=== PATIENT | male | born 1990 | race African-American/Black ===

== ENCOUNTER 2016-06-07 02:56 | Emergency (ER) | payer OTHER ==
[~2016-06-07] VITALS: Ht 180.3 cm; Wt 71.7 kg
[~2016-06-07 02:56] MED LIST: AZITHROMYCIN250 MG PO; NOHOMEMEDS; PERCOCET 5/31 TABLET PO
[2016-06-07] MEDS ORDERED: PERCOCET 5/31 TABLET PO (03:29)
[2016-06-07 03:42] VITALS: BP 128/95
== END 2016-06-07 03:51 | disposition home or self-care (01) ==
LOC: EME → EDBD 02:56 → EME 02:56
PROC: 0RSJXZZ Reposition Right Shoulder Joint, External Approach (ICD-10-PCS; principal; 2016-06-07)
DX: M24.411 Recurrent dislocation, right shoulder (principal); X50.9XXA Other and unspecified overexertion or strenuous movements or postures, initial encounter; Y92.013 Bedroom of single-family (private) house as the place of occurrence of the external cause
CPT/HCPCS: 73020; 73030; 99281; 99284

== ENCOUNTER 2017-09-18 12:19 | Emergency (ER) | payer OTHER ==
[~2017-09-18] VITALS: Ht 180.3 cm; Wt 94.5 kg
[2017-09-18] MEDS ORDERED: FLEXERIL10 MG PO (13:55)
[2017-09-18] MEDS ORDERED: NAPROXEN500 MG PO (13:55)
[2017-09-18 14:33] VITALS: BP 127/77
== END 2017-09-18 14:34 | disposition home or self-care (01) ==
LOC: EME 12:19
DX: M62.838 Other muscle spasm (principal)
CPT/HCPCS: 99281; 99284; J1885